=== PATIENT | female | born 1985 | race Caucasian/White ===

== ENCOUNTER 2022-03-22 14:34 | Outpatient (CLI) | payer BC, SELFPAY ==
[2022-03-22 17:38] LABS: Cholesterol* 225 mg/dL (90-199)
[2022-03-22 17:39] LABS: HDL Cholesterol* 80 mg/dL (>=50); LDL Cholesterol Calculated 124 mg/dL (<100); Triglycerides* 103 mg/dL (40-149)
== END 2022-03-22 14:35 | disposition home or self-care (01) ==
PROVIDERS: Visit Provider Obstetrics & Gynecology
DX: Z01.419 Encounter for gynecological examination (general) (routine) without abnormal findings (principal); R53.83 Other fatigue; R73.03 Prediabetes; Z13.6 Encounter for screening for cardiovascular disorders
CPT/HCPCS: 80061; 84443

== ENCOUNTER 2023-05-29 09:21 | Outpatient (CLI) | payer BC, SELFPAY | END 2023-05-29 09:22 | disposition home or self-care (01) | PROVIDERS: Visit Provider Obstetrics & Gynecology | DX: Z13.1 Encounter for screening for diabetes mellitus (principal); Z13.220 Encounter for screening for lipoid disorders; Z79.899 Other long term (current) drug therapy | CPT/HCPCS: 80061; 82947; 84443 ==